=== PATIENT | male | born 1995 | race Two or more races ===

== ENCOUNTER 2021-10-08 15:14 | Emergency (ER) | payer OTHER ==
[~2021-10-08] VITALS: Ht 185.4 cm; Wt 140.6 kg
[2021-10-08] MEDS ORDERED: COZAAR25 MG PO (15:36)
== END 2021-10-08 18:16 | disposition home or self-care (01) ==
LOC: ER 15:14
DX: J10.1 Influenza due to other identified influenza virus with other respiratory manifestations (principal); Z20.822 Contact with and (suspected) exposure to COVID-19; I10 Essential (primary) hypertension